=== PATIENT | female | born 1995 | race Caucasian/White ===

== ENCOUNTER 2024-10-09 19:27 | Emergency (ER) | payer MEDICAID ==
[~2024-10-09] VITALS: Ht 182.9 cm; Wt 140.9 kg
[2024-10-09] MEDS ORDERED: levetiracetam inj 1,500 MG in normal saline 100ml IV soln 100 ML IV ONE (20:25)
[2024-10-09] MEDS: ketorolac trometh 15mg/ml vial 15 MG/ML ML IM ONE (20:38)
[2024-10-09] MEDS: LORazepam 2 mg/ml vial IM ONE (20:38)
[2024-10-09] MEDS: levetiracetamNACL 1500mg/100mL 100 ML IV ONE (20:55)
[2024-10-09] MEDS: ondansetron/PF 4mg/2ml inj IV ONE (21:48)
[2024-10-09] MEDS: orphenadrine citrate 60mg/2ml inj. IM ONE (21:49)
[2024-10-09] MEDS: morphine 4 MG/ML inj SYRINge IV ONE (21:49)
[2024-10-09 22:08] LABS: URINE HCG NEGATIVE (NEG)
[2024-10-09 22:26] LABS: BILIRUBIN,URINE NEGATIVE (Neg); CLARITY,URINE SLIGHTLY CLOUDY (Clear); COLOR,URINE YELLOW (Yellow); GLUCOSE, URINE NEGATIVE (Neg); KETONES,URINE TRACE mg/dl (Neg); LEUKOCYTE ESTERASE ,URINE TRACE (Neg); NITRITES, URINE NEGATIVE (Neg); OCCULT BLOOD,URINE NEGATIVE (Neg); PROTEIN,URINE 30 mg/dl (Neg); UROBILINOGEN,URINE 0.2 E.U/dL (0.2-1.0)
[2024-10-09 22:28] LABS: UA COLLECTION TYPE CLN CATCH MIDSTREAM
[2024-10-09 22:29] LABS: BACTERIA,URINE 3+ /HPF (Neg); MUCUS STRANDS MODERATE /LPF (Neg); RBC,URINE NONE SEEN /HPF (0-2); SQUAMOUS EPITHELIAL CELL,UR MANY /LPF (FEW)
[2024-10-09] MEDS ORDERED: HYDR-3965 PO (22:45)
[2024-10-09 23:16] VITALS: BP 176/92; PULSE 98; RESP 18; TEMP 98.4; O2SAT 99
== END 2024-10-09 23:22 | disposition home or self-care (01) ==
LOC: ER 19:29
DX: G89.29 Other chronic pain (principal); M54.89 Other dorsalgia; Z91.040 Latex allergy status
CPT/HCPCS: 81001; 81025; 96372; 96374; 96375; 99284; J1885; J1953; J2060; J2270; J2360; J2405